=== PATIENT | female | born 1950 | race Caucasian/White ===

== ENCOUNTER 2018-10-26 20:08 | Emergency (ER) | payer OTHER, MEDICARE ==
[2018-10-26 21:04] LABS: BASOPHILS % (AUTO) 0.8 % (0.0-5.0); EOSINOPHILS % (AUTO) 1.1 % (0.0-8.0); HEMATOCRIT 36.9 % (36-48); LYMPHOCYTES % (AUTO) 20.3 % (21.0-51.0); MEAN CORPUSCULAR HEMOGLOBIN 28.8 pg (27.0-33.0); MEAN CORPUSCULAR HGB CONC 33.1 g/dL (32.0-36.0); MEAN CORPUSCULAR VOLUME 87.1 fL (79-99); MONOCYTES % (AUTO) 10.1 % (3.0-13.0); NEUTROPHILS % (AUTO) 67.7 % (40.0-77.0); PLATELET COUNT (AUTO) 194 K/uL (130-400); RED BLOOD CELL COUNT(AUTO) 4.24 MIL/uL (4.00-5.50); RED CELL DISTRIBUTION WIDTH 18.3 % (11.0-15.5); WHITE BLOOD COUNT (AUTO) 4.4 K/uL (4.8-10.8)
[2018-10-26 21:05] LABS: APPEARANCE,URINE Clear (CLEAR); BILIRUBIN,URINE Negative (NEGATIVE); COLOR,URINE Yellow (YELLOW); GLUCOSE, URINE (UA) >=1000 mg/dL (NEGATIVE); KETONES,URINE Negative (NEGATIVE); LEUKOCYTE ESTERASE ,URINE Trace (NEGATIVE); NITRATE,URINE Negative (NEGATIVE); OCCULT BLOOD,URINE Negative (NEGATIVE); PH,URINE 5.5 (5.0-8.0); PROTEIN,URINE Negative (NEGATIVE); UROBILINOGEN,URINE 0.2 mg/dL (0.2-1.0)
[2018-10-26 21:20] LABS: INR 0.95 (0.85-1.15); PARTIAL THROMBOPLASTIN TIME 29.7 SEC (26.3-35.5)
[2018-10-26 21:27] LABS: ALBUMIN 3.2 g/dL (3.5-5.0); BILIRUBIN,TOTAL 0.3 mg/dL (0.2-1.0); TOTAL PROTEIN, SERUM 6.6 g/dL (6.0-8.3)
[2018-10-26 21:35] LABS: RBC,URINE None Seen /HPF (0-1); WBC,URINE 0-1 /HPF (0-1)
[2018-10-26 21:36] LABS: BACTERIA,URINE None Seen /HPF (None Seen); YEAST,URINE BUDDING Few /HPF (None Seen)
== END 2018-10-27 00:48 | disposition home or self-care (01) ==
LOC: EDH 20:08
DX: K62.5 Hemorrhage of anus and rectum (principal); E11.9 Type 2 diabetes mellitus without complications; F41.9 Anxiety disorder, unspecified; I10 Essential (primary) hypertension
CPT/HCPCS: 36415; 80053; 81001; 82270; 82550; 84484; 85025; 85610; 85730; 86850; 86900; 86901; 93005

== ENCOUNTER 2023-11-20 20:05 | Inpatient (IN) | payer OTHER, MEDICARE ==
[~2023-11-20] VITALS: Ht 152.4 cm; Wt 76.7 kg
[~2023-11-20 20:05] MED LIST: AMLO2.5T4 PO; EMPA25TA PO; ESCI20TA38 PO; FENO145T26 PO; FINE10TA PO; FURO40TA5 PO; LISI40TA9 PO; MIRA50TA PO; PIOG15TA66 PO; ROSU40TA70 PO; TORS10TA18 PO; TRAZ-185 PO
[2023-11-20 21:14] LABS: BASOPHILS # (AUTO) 0.03 K/uL (0.00-0.20); BASOPHILS % (AUTO) 0.6 % (0.0-5.0); EOSINOPHILS # (AUTO) 0.05 K/uL (0.00-0.70); HEMATOCRIT 34.3 % (36-48); IMMATURE GRANULOCYTE ABSOLUTE 0.03 K/uL (0-1); LYMPHOCYTES # (AUTO) 0.5 K/uL (1.0-4.8); LYMPHOCYTES % (AUTO) 10.6 % (21.0-51.0); MEAN CORPUSCULAR HEMOGLOBIN 29.7 pg (27.0-33.0); MEAN CORPUSCULAR HGB CONC 31.5 g/dL (32.0-36.0); MEAN CORPUSCULAR VOLUME 94.2 fL (79-99); MONOCYTES # (AUTO) 0.6 K/uL (0.1-1.0); MONOCYTES % (AUTO) 11.6 % (3.0-13.0); NEUTROPHILS # (AUTO) 3.9 K/uL (1.8-7.7); NEUTROPHILS % (AUTO) 75.6 % (40.0-77.0); PLATELET COUNT (AUTO) 356 K/uL (130-400); RED BLOOD CELL COUNT(AUTO) 3.64 MIL/uL (4.00-5.50); RED CELL DISTRIBUTION WIDTH 14.2 % (11.0-15.5); WHITE BLOOD COUNT (AUTO) 5.1 K/uL (4.8-10.8)
[2023-11-20 21:24] LABS: INR <= 0.93 (0.85-1.15); PROTHROMBIN TIME 10.9 SEC (9.6-11.6)
[2023-11-20 21:26] LABS: PARTIAL THROMBOPLASTIN TIME 29.5 SEC (26.3-35.5)
[2023-11-20 21:28] LABS: BILIRUBIN,TOTAL 0.3 mg/dL (0.2-1.0); CREATININE 1.5 mg/dL (0.5-1.0); POTASSIUM 5.3 mmol/L (3.5-5.1); TOTAL PROTEIN, SERUM 8.4 g/dL (6.0-8.3)
[2023-11-20 22:30] LABS: APPEARANCE,URINE CLOUDY (CLEAR); BILIRUBIN,URINE NEGATIVE (NEGATIVE); COLOR,URINE LIGHT-YELLOW (YELLOW); GLUCOSE, URINE (UA) >=1000 mg/dL (NEGATIVE); KETONES,URINE NEGATIVE (NEGATIVE); LEUKOCYTE ESTERASE ,URINE 500 Leu/uL (NEGATIVE); NITRATE,URINE NEGATIVE (NEGATIVE); OCCULT BLOOD,URINE NEGATIVE (NEGATIVE); PROTEIN,URINE NEGATIVE (NEGATIVE); UROBILINOGEN,URINE 0.2 mg/dL (0.2-1.0)
[2023-11-20 22:31] LABS: ADD UA MICROSCOPIC YES
[2023-11-20 22:38] LABS: BACTERIA,URINE RARE /HPF (None Seen); MUCUS,URINE RARE LPF (None Seen); SQUAMOUS EPITHELIAL CELL,UR FEW /HPF (0-2); WBC,URINE 51-100 /HPF (0-1)
[2023-11-20] MEDS ORDERED: 0.9%NACL 1000ML 1,000 ML IV ONE (23:00)
[2023-11-20] MEDS: CEFTRIAXONE 1G VIAL IVPB ONE (23:59)
[2023-11-21] VITALS (8 sets, daily range): BP systolic 110–139; BP diastolic 58–79; PULSE 72–97; RESP 16–20; O2SAT 96–99
[2023-11-21] MEDS ORDERED: ONDANSETRON 4MG INJ IVP PRN (01:30)
[2023-11-21] MEDS ORDERED: PIOG15TA66 PO (03:33)
[2023-11-21] MEDS ORDERED: FERS325 PO (03:35)
[2023-11-21] MEDS ORDERED: HYDR25TA67 PO (03:37)
[2023-11-21 04:47] LABS: BASOPHILS # (AUTO) 0.02 K/uL (0.00-0.20); BASOPHILS % (AUTO) 0.5 % (0.0-5.0); EOSINOPHILS # (AUTO) 0.06 K/uL (0.00-0.70); EOSINOPHILS % (AUTO) 1.4 % (0.0-8.0); IMMATURE GRANULOCYTE ABSOLUTE 0.02 K/uL (0-1); LYMPHOCYTES # (AUTO) 0.5 K/uL (1.0-4.8); MEAN CORPUSCULAR HEMOGLOBIN 29.3 pg (27.0-33.0); MEAN CORPUSCULAR HGB CONC 32.2 g/dL (32.0-36.0); MEAN CORPUSCULAR VOLUME 91.2 fL (79-99); MONOCYTES # (AUTO) 0.5 K/uL (0.1-1.0); MONOCYTES % (AUTO) 10.9 % (3.0-13.0); NEUTROPHILS # (AUTO) 3.3 K/uL (1.8-7.7); NEUTROPHILS % (AUTO) 74.7 % (40.0-77.0); NUCLEATED RED BLOOD CELLS 0.5 % (0.0-0.19); PLATELET COUNT (AUTO) 357 K/uL (130-400); RED BLOOD CELL COUNT(AUTO) 3.51 MIL/uL (4.00-5.50); RED CELL DISTRIBUTION WIDTH 14.1 % (11.0-15.5); WHITE BLOOD COUNT (AUTO) 4.4 K/uL (4.8-10.8)
[2023-11-21 05:01] LABS: CREATININE 1.4 mg/dL (0.5-1.0); MAGNESIUM 2.1 mg/dL (1.80-2.40)
[2023-11-21] MEDS: INSULIN HUMULIN R 100 UNIT/ML 3ML SQ SCH (06:07)
[2023-11-21] MEDS: ACETAMINOPHEN 325 MG TAB PO PRN (09:51)
[2023-11-21] MEDS: 0.9%NACL 1000ML 1,000 ML IV SCH (12:56)
[2023-11-21] MEDS: LOPERAMIDE HCL 2 MG CAP PO ONE (12:56)
[2023-11-21] MEDS: HYDRALAZINE 25MG TABLET PO SCH (21:39)
[2023-11-21] MEDS: ATORVASTATIN 40 MG TABLET PO SCH (21:39)
[2023-11-21] MEDS: TRAZODONE HCL 50 MG TAB PO PRN (21:39)
[2023-11-22] VITALS (7 sets, daily range): BP systolic 100–125; BP diastolic 54–69; PULSE 72–87; RESP 16–19; O2SAT 94
[2023-11-22] MEDS: CEFTRIAXONE 1G VIAL IVPB SCH (01:00)
[2023-11-22 03:40] LABS: BASOPHILS # (AUTO) 0.01 K/uL (0.00-0.20); BASOPHILS % (AUTO) 0.3 % (0.0-5.0); EOSINOPHILS # (AUTO) 0.08 K/uL (0.00-0.70); EOSINOPHILS % (AUTO) 2.7 % (0.0-8.0); HEMATOCRIT 30.1 % (36-48); IMMATURE GRANULOCYTE ABSOLUTE 0.04 K/uL (0-1); LYMPHOCYTES # (AUTO) 0.5 K/uL (1.0-4.8); LYMPHOCYTES % (AUTO) 15.4 % (21.0-51.0); MEAN CORPUSCULAR HEMOGLOBIN 30.3 pg (27.0-33.0); MEAN CORPUSCULAR HGB CONC 32.2 g/dL (32.0-36.0); MEAN CORPUSCULAR VOLUME 94.1 fL (79-99); MONOCYTES # (AUTO) 0.4 K/uL (0.1-1.0); MONOCYTES % (AUTO) 13.8 % (3.0-13.0); NEUTROPHILS % (AUTO) 66.5 % (40.0-77.0); NUCLEATED RED BLOOD CELLS 1.3 % (0.0-0.19); PLATELET COUNT (AUTO) 298 K/uL (130-400)
[2023-11-22 03:51] LABS: ALBUMIN 3.2 g/dL (3.5-5.0); BILIRUBIN,TOTAL 0.2 mg/dL (0.2-1.0); CREATININE 1.5 mg/dL (0.5-1.0); MAGNESIUM 2.1 mg/dL (1.80-2.40); POTASSIUM 4.9 mmol/L (3.5-5.1); TOTAL PROTEIN, SERUM 6.8 g/dL (6.0-8.3)
[2023-11-22 05:33] LABS: LYMPHOCYTES % (MANUAL) 21 % (22-44); MONOCYTES % (MANUAL) 13 % (2-9); REACTIVE LYMPHOCYTES 1 % (0-0); SEGMENTED NEUTROPHILS % 65 % (40-70); TOTAL CELLS COUNTED 100
[2023-11-22 05:34] LABS: MAN.DIFF COMMENT-IMPRESSION MANUAL DIFFERENTIAL; PLATELET MORPHOLOGY COMMENT ADEQUATE; WBC MORPHOLOGY NORMAL
[2023-11-22] MEDS ORDERED: NON-FORMULARY MEDICATION 1 EACH (Rosuvastatin Calcium 40 MG) PO SCH (09:00)
[2023-11-22] MEDS ORDERED: TORSEMIDE 20 MG TAB PO SCH (09:00)
[2023-11-22] MEDS: KERENDIA 10 MG PO SCH (09:00)
[2023-11-22] MEDS ORDERED: NON-FORMULARY MEDICATION 1 EACH (Escitalopram Oxalate 20 MG) PO SCH (09:00)
[2023-11-22] MEDS ORDERED: PIOGLITAZONE 15MG TAB PO SCH (09:00)
[2023-11-22] MEDS ORDERED: NON-FORMULARY MEDICATION 1 EACH (Ferrous Sulfate 325 MG) PO SCH (09:00)
[2023-11-22] MEDS ORDERED: FUROSEMIDE 40 MG TABLET PO SCH (09:00)
[2023-11-22] MEDS ORDERED: NON-FORMULARY MEDICATION 1 EACH (Torsemide 10 MG) PO SCH (09:00)
[2023-11-22] MEDS ORDERED: FINERENONE 10 MG PO SCH (09:00)
[2023-11-22] MEDS: FERROUS SULFATE 325 MG TABLET.DR PO SCH (09:12)
[2023-11-22] MEDS: LOPERAMIDE HCL 2 MG CAP PO PRN (09:13)
[2023-11-22] MEDS: CITALOPRAM 20 MG TABLET PO SCH (09:13)
[2023-11-22] MEDS: FENOFIBRATE NANOCRYSTALLIZED 145 MG TAB PO SCH (09:13)
[2023-11-22] MEDS: PIOGLITAZONE 15MG TAB PO SCH (09:13)
[2023-11-22] MEDS: EMPAGLIFLOZIN 25MG TABLET PO SCH (09:14)
[2023-11-22] MEDS: LISINOPRIL 40 MG TABLET PO SCH (09:18)
[2023-11-22] MEDS: AMLODIPINE 2.5 MG TAB PO SCH (09:19)
[2023-11-22] MEDS: ZOSYN 3.375GM +NS 50ML IV SCH (09:53)
[2023-11-23] VITALS (7 sets, daily range): BP systolic 103–136; BP diastolic 57–74; PULSE 76–89; RESP 16–18; O2SAT 98
[2023-11-23 03:59] LABS: HEMATOCRIT 27.5 % (36-48); MEAN CORPUSCULAR HGB CONC 31.3 g/dL (32.0-36.0); MEAN CORPUSCULAR VOLUME 95.8 fL (79-99); NUCLEATED RED BLOOD CELLS 0.9 % (0.0-0.19); RED BLOOD CELL COUNT(AUTO) 2.87 MIL/uL (4.00-5.50); RED CELL DISTRIBUTION WIDTH 14.3 % (11.0-15.5); WHITE BLOOD COUNT (AUTO) 3.3 K/uL (4.8-10.8)
[2023-11-23 04:21] LABS: CREATININE 1.5 mg/dL (0.5-1.0); MAGNESIUM 2.1 mg/dL (1.80-2.40); POTASSIUM 4.8 mmol/L (3.5-5.1)
[2023-11-24] VITALS: BP 115/61; PULSE 78; RESP 18
[2023-11-24 04:00] VITALS: BP 113/52; PULSE 73; RESP 18
[2023-11-24 04:08] LABS: INR 1.31 (0.85-1.15); PROTHROMBIN TIME 15.2 SEC (9.6-11.6)
[2023-11-24 04:10] LABS: PARTIAL THROMBOPLASTIN TIME 45.1 SEC (26.3-35.5)
[2023-11-24 07:19] LABS: C DIFFICILE TOXIN A/B Not Detected (Not Detected); ENTEROAGGREGATIVE ECOLI Not Detected (Not Detected); GIARDIA LAMBLIA Not Detected (Not Detected); PLESIOMONAS SHIGELOIDES Not Detected (Not Detected); SAPOVIRUS Detected (Not Detected); SHIGELLA/ENTEROINVASIVE E COLI Not Detected (Not Detected); VIBRIO Not Detected (Not Detected); VIBRIO CHOLERAE Not Detected (Not Detected)
[2023-11-24 07:44] VITALS: BP 125/63; PULSE 82; RESP 17
[2023-11-24 08:45] VITALS: O2SAT 95
[2023-11-24 12:29] VITALS: BP 141/65; PULSE 77; RESP 18
[2023-11-24 12:32] VITALS: BP 151/75; PULSE 85; RESP 18
== END 2023-11-24 16:00 | disposition home or self-care (01) | DRG 683 ==
LOC: EDH 20:05 → EDHIP 23:37 → 4AH 11-21 01:52
PROVIDERS: ADMIT Internal Medicine Infectious Disease; ATTEND Internal Medicine Infectious Disease
DX: N17.9 Acute kidney failure, unspecified (principal); E87.1 Hypo-osmolality and hyponatremia; N39.0 Urinary tract infection, site not specified; Z16.24 Resistance to multiple antibiotics; E86.0 Dehydration; K52.9 Noninfective gastroenteritis and colitis, unspecified; E11.9 Type 2 diabetes mellitus without complications; E78.00 Pure hypercholesterolemia, unspecified; I10 Essential (primary) hypertension; E83.52 Hypercalcemia; E87.5 Hyperkalemia; B96.20 Unspecified Escherichia coli [E. coli] as the cause of diseases classified elsewhere; E66.01 Morbid (severe) obesity due to excess calories; F32.A Depression, unspecified; I25.10 Atherosclerotic heart disease of native coronary artery without angina pectoris; Z95.5 Presence of coronary angioplasty implant and graft; Z79.899 Other long term (current) drug therapy; Z68.33 Body mass index [BMI] 33.0-33.9, adult
CPT/HCPCS: 36415; 36569; 71045; 76770; 80048; 80053; 81001; 82948; 83690; 83735; 85025; 85027; 85610; 85730; 87077; 87088; 87186; 87507; C1894; G0378; J0696; J1815; J2543

== ENCOUNTER 2024-05-10 14:00 | Emergency (ER) | payer MEDICARE ==
[~2024-05-10] VITALS: Ht 152.4 cm; Wt 81.6 kg
[~2024-05-10 14:00] MED LIST changes: +FERS325 PO; +HYDR25TA67 PO; -ROSU40TA70 PO; +ROSU40TA88 PO
--- NOTE | 2024-05-10 15:17 | HMCIMG ---
CT HEAD WITHOUT CONTRAST INDICATION: Fall TECHNIQUE: Noncontrast axial helical CT images from the vertex through the skull base using 5 mm slice thickness without contrast material. Coronal and sagittal reconstructions were also included. Dose reduction techniques was used using integrated, automated and adaptive dose reduction exposure control. CT was performed with one or more of the following dose reduction techniques: Automated exposure control, adjustment of the mA and/or kV according to patient size, or use of iterative reconstruction technique. COMPARISON: None FINDINGS: Scattered and coalescent subcortical and periventricular white matter low attenuating areas likely represent residual of chronic small vessel arteriopathy and/or remote vascular insult. Generalized mild cerebral cortical atrophy is present.. No evidence for abnormal extra-axial fluid collections or masses. The ventricles and sulci are normal in size and configuration. No evidence for intracranial parenchymal, epidural, or subdural hemorrhage, mass effect or midline shift. The ames-white matter differentiation is well preserved. No secondary evidence to suggest acute ischemia. Mild calcific plaque is present along the contreras of the cavernous segments of both internal carotid arteries. The brainstem and cerebellum appear normal. The visualized orbits appear unremarkable. The visible paranasal sinuses and mastoid air cells are clear. The calvarium appears normal. IMPRESSION: Chronic white matter ischemic changes, mild brain atrophy, and arteriosclerotic disease as described, without acute component.
[2024-05-10] MEDS: acetaMINOPHEN 500 MG TABLET PO ONE (15:26)
[2024-05-10 15:37] VITALS: O2SAT 96
--- NOTE | 2024-05-10 15:47 | ERN ---
General Chief Complaint: Mechanical Fall Stated Complaint: FALL Time Seen by MD: 14:09 Source: patient History of Present Illness Initial Comments PATIENT IS A 73-YEAR-OLD FEMALE COMING IN TO BE EVALUATED FOR SLIP AND FALL. PATIENT STATES SHE WAS FEEDING HER ANIMALS AT HOME SLIPPED AND LANDED ON THE BACK OF HER HEAD. NO LOSS OF CONSCIOUSNESS SHE IS NOT ON BLOOD THINNERS SHE IS HERE FOR EVALUATION. Allergies: Coded Allergies: No Known Allergies (Verified Allergy, Unknown, 11/19/18) Home Meds Reported Medications Hydralazine HCl (Hydralazine HCl) 25 Mg Tablet, 25 MG PO TID, TAB 11/21/23 Ferrous Sulfate (Ferrous Sulfate) 325 Mg (65 Mg Iron) Ectab, 325 MG PO AM, TAB.EC 11/21/23 Pioglitazone HCl (Pioglitazone HCl) 15 Mg Tablet, 15 MG PO AM, TAB 11/21/23 Finerenone (Kerendia) 10 Mg Tablet, 10 MG PO DAILY, TAB 11/21/23 Mirabegron (Myrbetriq) 50 Mg Tab.er.24h, 50 MG PO DAILY, TAB 09/14/23 Fenofibrate Nanocrystallized (Fenofibrate) 145 Mg Tablet, 145 MG PO DAILY, TAB 09/14/23 Trazodone HCl (Trazodone HCl) 50 Mg Tablet, 50 MG PO HS PRN for SLEEP, TAB 09/14/23 Torsemide (Torsemide) 10 Mg Tablet, 10 MG PO DAILY, TAB 09/14/23 Escitalopram Oxalate (Escitalopram Oxalate) 20 Mg Tablet, 20 MG PO DAILY, TAB 09/14/23 Amlodipine Besylate (Amlodipine Besylate) 2.5 Mg Tablet, 2.5 MG PO DAILY, TAB 09/14/23 Finerenone (Kerendia) 10 Mg Tablet, 10 MG PO DAILY, TAB 09/14/23 Pioglitazone HCl (Pioglitazone HCl) 15 Mg Tablet, 15 MG PO DAILY, TAB 09/14/23 Rosuvastatin Calcium (Rosuvastatin Calcium) 40 Mg Tablet, 40 MG PO DAILY, TAB 09/14/23 Furosemide (Furosemide) 40 Mg Tablet, 40 MG PO DAILY, TAB 09/14/23 Empagliflozin (Jardiance) 25 Mg Tablet, 25 MG PO DAILY, TAB 09/14/23 Lisinopril (Lisinopril) 40 Mg Tablet, 40 MG PO DAILY, TAB 09/14/23 Past Medical History Past Medical History: Diabetes-Type II, High Cholesterol, Hypertension Past Surgical History: None Surgical History Other: CARDIAC STENT Social History Social History: Negative, Lives with family ROS Dictation CONSTITUTIONAL: NO CHILLS, NO FEVER, NO WEAKNESS, NO DIAPHORESIS, NO MALAISE. HEAD/FACE: NO SIGNS OF TRAUMA. EENT: NO EYE PAIN, NO BLURRED VISION, NO TEARING, NO DOUBLE VISION, NO EAR PAIN, NO EAR DISCHARGE, NO NOSE PAIN, NO NASAL CONGESTION, NO THROAT PAIN, NO THROAT SWELLING, NO MOUTH PAIN. RESPIRATORY: NO COUGH, NO ORTHOPNEA, NO SOB, NO STRIDOR, NO WHEEZING. CARDIOVASCULAR: NO CHEST PAIN, NO EDEMA, NO PALPITATIONS, NO SYNCOPE. GASTROINTESTINAL/ABDOMINAL: NO ABDOMINAL PAIN, NO CONSTIPATION, NO DIARRHEA, NO NAUSEA, NO VOMITING. GENITOURINARY: NO ABNORMAL DISCHARGE, NO DYSURIA, NO FREQUENT URINATION, NO HEMATURIA. NO COMPLAINTS OF PAIN IN THE GENITALS. MUSCULOSKELETAL: NO BACK PAIN, NO GOUT, NO JOINT PAIN, NO JOINT SWELLING, NO MUSCLE PAIN, NO MUSCLE STIFFNESS, NO NECK PAIN. INTEGUMENTARY: NO CHANGE IN COLOR, NO CHANGE IN HAIR/NAILS, NO DRYNESS, NO LESION, NO LUMPS, NO RASH. NEUROLOGICAL/PSYCH: NO ANXIETY, NOT DEPRESSED, NO EMOTIONAL PROBLEM, NO H EADACHE, NO NUMBNESS, NO PRE-EXISTING DEFICIT, NO HISTORY OF SEIZURES, NO TREMORS, NO WEAKNESS. HEMATOLOGIC/LYMPHATIC: NOT ANEMIC, NO HISTORY OF BLOOD CLOTS, NO APPARENT BLEEDING, NO BRUISING, GLANDS NOT SWOLLEN. ALL SYSTEMS NEGATIVE, EXCEPT NOTED. Physical Exam Physical Exam Dictation VITAL SIGNS: REVIEWED. GENERAL APPEARANCE: ALERT, ORIENTED X3, NO ACUTE DISTRESS, OBESE. HEAD AND FACE: NON-TRAUMATIC. EYES: PERRL, PINK CONJUNCTIVAS, EYELID NO TRAUMA, ANTERIOR CHAMBER CLEAR. EARS: PINNAS INTACT AND NO SIGNS OF TRAUMA OR ERYTHEMA. EAR CANALS CLEAR AND NO DISCHARGE. TMS NO ERYTHEMA. NOSE: NO DISCHARGE, NO BLEEDING. OROPHARYNX: MOUTH NORMAL, TEETH NO CARIES, TONGUE PINK. PHARYNX CLEAR, NO ERYTHEMA. TONSILS NO EXUDATES, NO ABSCESSES NOTED. MUCOUS MEMBRANE MOIST. NECK: SUPPLE, NON-TENDER, NO THYROMEGALY, NO MASSES, NO JVD, NO BRUITS. BREAST: DEFERRED. CHEST: NO TENDERNESS, NO CREPITUS, NO PARADOXICAL MOVEMENT, NO RETRACTIONS. LUNGS: CLEAR, WELL-VENTILATED, SYMMETRIC, NO RALES, NO WHEEZING, NO RHONCHI, NO STRIDOR, GOOD BREATH SOUNDS BILATERALLY. HEART: REGULAR RATE, REGULAR RHYTHM, NO MURMUR, NO GALLOPS. VASCULAR: NO PERIPHERAL EDEMA. ABDOMEN: SOFT, POSITIVE BOWEL SOUNDS, NONDISTENDED, NO GUARDING, NONTENDER, NO REBOUND, NO MASSES NO HEPATOMEGALY, NO SPLENOMEGALY, NO GONZALES'S SIGN, NO HERNIAS. RECTAL: DEFERRED. GENITAL: DEFERRED. NEUROLOGICAL: NORMAL SPEECH, GROSS MOTOR FUNCTION INTACT, GROSS SENSORY FUNCTION INTACT. MUSCULOSKELETAL: NECK NONTENDER, FULL RANGE OF MOTION, BACK NONTENDER, FULL RANGE OF MOTION. EXTREMITIES: NONTENDER, FULL RANGE OF MOTION. SKIN: COLOR PINK, DRY, NO TURGOR, NO RASH, NO LACERATIONS, NO ABRASIONS, NO CONTUSIONS. LYMPHATICS: DEFERRED. Results Laboratory and Microbiology Labs Reviewed?: Yes EKG/XRAY/US/CT/MRI X-RAY Comment X-ray left knee-NAD pending radiology reading X-ray cervical spine-NAD [place] [address] IMAGING REPORT Signed PATIENT: KAYE CABAN MR#: [id number] : 1950 SEX: F AGE: 73 LOCATION: [facility] ORDER 20 STATUS: [facility] REPORT#: [id number] SERVICE 19 REASON: FALL ORDERING PHYSICIAN: DESTINY ZURITA MD PROCEDURE: HEAD WO - CT HEAD/BRAIN W/O CONTRAST CT HEAD WITHOUT CONTRAST INDICATION: Fall TECHNIQUE: Noncontrast axial helical CT images from the vertex through the skull base using 5 mm slice thickness without contrast material. Coronal and sagittal reconstructions were also included. Dose reduction techniques was used using integrated, automated and adaptive dose reduction exposure control. CT was performed with one or more of the following dose reduction techniques: Automated exposure control, adjustment of the mA and/or kV according to patient size, or use of iterative reconstruction technique. COMPARISON: None FINDINGS: Scattered and coalescent subcortical and periventricular white matter low attenuating areas likely represent residual of chronic small vessel arteriopathy and/or remote vascular insult. Generalized mild cerebral cortical atrophy is present.. No evidence for abnormal extra-axial fluid collections or masses. The ventricles and sulci are normal in size and configuration. No evidence for intracranial parenchymal, epidural, or subdural hemorrhage, mass effect or midline shift. The ames-white matter differentiation is well preserved. No secondary evidence to suggest acute ischemia. Mild calcific plaque is present along the contreras of the cavernous segments of both internal carotid arteries. The brainstem and cerebellum appear normal. The visualized orbits appear unremarkable. The visible paranasal sinuses and mastoid air cells are clear. The calvarium appears normal. IMPRESSION: Chronic white matter ischemic changes, mild brain atrophy, and arteriosclerotic disease as described, without acute component. DICTATED BY: MERRILL SARAVIA MD DATE: 05/10/241513 ELECTRONICALLY SIGNED BY: MERRILL SARAVIA MD DATE: 05/10/241516 [facility] MDM: Differential diagnosis: Mechanical fall, knee strain, I would contusion Patient is a 73-year-old female coming in to be evaluated after she had a fall earlier today. She will patient she slipped and fell back hitting her head. No loss of consciousness he was escorted. On physical exam mild abrasion in the occipital region of the scalp. Patient will be discharged in stable condition with a diagnosis of mechanical fall. Left knee strain was also present knee immobilizer in place. Patient will be discharged in stable condition I advised her appropriate follow up with PCP in 1-2 days. ED Course Orders Procedure Category Date Status Time Ct Head/Brain W/O CT 05/10/24 Resulted Contrast 14:20 Cerv Spine 2-3vws RAD 05/10/24 Taken 14:20 Knee 3vws Lt RAD 05/10/24 Taken 14:20 Diph,Pertuss(Acell),Tet PHA 05/10/24 Complete Vac/Pf (Tdap) 14:30 Acetaminophen 500mg PHA 05/10/24 Complete Tab (Tylenol 500mg T 14:30 Knee Immobilizer OBED 05/10/24 In Process 15:47 Current Medications Medications (Trade) Dose Ordered Sig/Christie Route PRN Reason Start Time Stop Time Status Last Admin Dose Admin Acetaminophen (TYLenol 500MG TAB) 1,000 mg ONCE ONCE PO 05/10/24 14:30 11/16/24 14:31 DC 05/10/24 15:26 Diphtheria/ Tetanus/Acell Pertussis (Tdap) 0.5 ml ONCE ONCE IM 05/10/24 14:30 05/10/24 14:31 DC 05/10/24 16:19 Vital Signs Date Time Temp Pulse Resp B/P (MAP) Pulse Ox O2 Delivery O2 Flow Rate FiO2 05/10/24 15:37 82 17 121/55 96 Room Air* 0 21 05/10/24 14:13 98.8 82 20 158/80 97 Room Air 0 DX & DISP Disposition: Discharge Departure Impression: Primary Impression: Accidental mechanical suffocation by falling material Additional Impression: Knee strain Condition: Stable Scripts Naproxen (Naproxen) 250 Mg Tablet 1 TAB PO BID for pain for 15 Days, #30 TAB 0 Refills Prov: DESTINY ZURITA MD 05/10/24 Additional Instructions: FOLLOW-UP WITH PRIMARY CARE PROVIDER IN 1 TO 2 DAYS. TAKE MEDICATIONS DIRECTED HERE IN THE EMERGENCY ROOM. OKAY TO CONTINUE HOME MEDICATIONS UNLESS OTHERWISE DISCUSSED DURING YOUR VISIT IN THE EMERGENCY ROOM TODAY. RETURN TO YOUR NEAREST EMERGENCY ROOM IF SYMPTOMS WORSEN OR IF THERE IS NO IMPROVEMENT. CALL 911 IF YOU NEED IMMEDIATE ASSISTANCE. TAKE TYLENOL INTO-MKU-AADOMSQ NEEDED AND IF NO CONTRAINDICATIONS ARE PRESENT. INCREASE ORAL HYDRATION. A WOUND CULTURE OR URINE CULTURE WAS ORDERED HERE IN THE EMERGENCY ROOM DEPARTMENT PLEASE FOLLOW-UP WITH PRIMARY CARE PROVIDER AND ADVISE THEM TO GET REPEAT PORTS FROM OUR FACILITY. IF YOU HAD ANY MERCEDEZ WRAP/SPLINTS THAT WERE APPLIED HERE, PLEASE DO NOT REMOVE THEM UNTIL YOU SEE YOUR PRIMARY CARE OR SPECIALTY. Referrals: Referrals: NELIDA CORONADO DO (PCP) Time of Disposition: 16:38 DESTINY ZURITA MD May 10, 2024 15:47
[2024-05-10] MEDS: DIPH,PERTUSS(ACELL),TET VAC/PF 0.5 ML VIAL IM ONE (16:19)
[2024-05-10 16:39] VITALS: BP 145/70; PULSE 96; RESP 17; TEMP 98
[2024-05-10] MEDS ORDERED: NAPR-1196 PO (16:39)
--- NOTE | 2024-05-10 16:41 | NUR ---
discussed with daughter the importance of having someone help patient at home , patient and daughter verbally understood
--- NOTE | 2024-05-10 17:39 | HMCIMG ---
KNEE 3VWS LT CLINICAL HISTORY: FALL COMPARISON: None TECHNIQUE: 4 images were obtained. FINDINGS: There is an oblique intra-articular fracture of the lateral femoral condyle. There is one cortical width displacement of the fracture fragment. Additionally demonstrated is a large joint effusion and soft tissue edema. The remaining bony structures are intact. IMPRESSION: Intra-articular femur fracture
--- NOTE | 2024-05-10 18:01 | HMCIMG ---
CERV SPINE 2-3VWS: 05/10/2024 2:20 PM RN DIALYSIS CLINICAL HISTORY: FALL COMPARISON: None TECHNIQUE: 5 images of the cervical spine were obtained. FINDINGS: The lung apices are clear. There is no fracture or destructive lesion. The vertebral bodies and posterior elements are unremarkable. The alignment, discs, and discovertebral relationships are normal. There is no evidence of instability on these views. IMPRESSION: Normal cervical spine.
== END 2024-05-10 16:45 | disposition home or self-care (01) ==
LOC: EDH 14:00
DX: S86.912A Strain of unspecified muscle(s) and tendon(s) at lower leg level, left leg, initial encounter (principal); E11.9 Type 2 diabetes mellitus without complications; E78.00 Pure hypercholesterolemia, unspecified; I10 Essential (primary) hypertension; R51.9 Headache, unspecified; Z79.84 Long term (current) use of oral hypoglycemic drugs; Z79.899 Other long term (current) drug therapy; Z95.5 Presence of coronary angioplasty implant and graft; W01.0XXA Fall on same level from slipping, tripping and stumbling without subsequent striking against object, initial encounter; Y93.89 Activity, other specified; Y92.89 Other specified places as the place of occurrence of the external cause; Y99.8 Other external cause status
CPT/HCPCS: 29505; 70450; 72040; 73562; 90471; 90715; 99285

== ENCOUNTER 2025-01-11 20:05 | Emergency (ER) | payer OTHER, MEDICAID ==
[~2025-01-11] VITALS: Ht 152.4 cm; Wt 79.8 kg
[~2025-01-11 20:05] MED LIST changes: +CLON0.5T4 PO; +LISI40TA15 PO; -LISI40TA9 PO; +NAPR-1196 PO
--- NOTE | 2025-01-11 20:30 | EKG ---
[facility] Test Date: 2025-01-11 Test Time: 20:26:22 Pat Name: KAYE CABAN Department: ED Room: Gender: F [employer] Operator: [id number] : 1950 Requested By: LEONIDAS DOMINGUEZ Order Number: [id number] Reading MD: Santos Mccallum Measurements Intervals [place] Rate: 69 P: 34 NC: 176 QRS: -51 QRSD: 109 T: 29 QT: 403 QTc: 431 Interpretive Statements Sinus rhythm Left anterior fascicular block Low voltage, precordial leads Probable anteroseptal infarct, old Electronically Signed On 01-13-2025 00:00:29 CDT by Santos Mccallum Please click the below link to view image of tracing.
[2025-01-11 20:33] LABS: IMMATURE GRANULOCYTE ABSOLUTE 0.02 K/uL (0-1); NUCLEATED RED BLOOD CELLS 0.0 % (0.0-0.19); PLATELET COUNT (AUTO) 237 K/uL (130-400); RED BLOOD CELL COUNT(AUTO) 3.95 MIL/uL (4.00-5.50); RED CELL DISTRIBUTION WIDTH 14.0 % (11.0-15.5); WHITE BLOOD COUNT (AUTO) 5.1 K/uL (4.8-10.8)
[2025-01-11 20:49] LABS: CREATININE 1.5 mg/dL (0.5-1.0); GLOMERULAR FILTR. RATE CALC 37.0 mL/min (>90); GLUCOSE,RANDOM 147.0 mg/dL (70-105); SODIUM SERUM 136.0 mmol/L (136-145); UREA NITROGEN, BLOOD 42.0 mg/dL (7-18)
--- NOTE | 2025-01-11 20:56 | ERN ---
ED Note History of Present Illness Stated Complaint: GBW, DIZZINESS, FATIGUE Chief Complaint: Weakness Time Seen by MD: 20:10 Dictation: This is a 74-year-old female who apparently was at other son's home when she complained of dizziness and fatigue they checked her blood pressure and basically called EMS for evaluation. Son was at bedside who indicated that he usually takes care of her and she has had low sugar early this morning after which she indulged in syrup to bring her sugars up in the follow up sugars were in the 400s. Eventually the sugars stabilized. No falls no nausea vomitings diarrhea. She has had multiple episodes of ER visits with fatigue and generalized body weakness. Temperature 98.6 pulse 81 respirations 16 blood pressure 105/60 with a pulse oximetry of 97% on room air Chronic medical problems include diabetes mellitus, hypertension, hypercholesterolemia, coronary artery disease, renal failure during recent admission and discharge on 12/11/2024 Allergies: Coded Allergies: No Known Allergies (Verified Allergy, Unknown, 11/19/18) Home Meds Active Scripts Naproxen (Naproxen) 250 Mg Tablet, 1 TAB PO BID for pain for 15 Days, #30 TAB 0 Refills Prov:DESTINY ZURITA MD 05/10/24 Reported Medications Clonazepam (Clonazepam) 0.5 Mg Tablet, 1 TAB PO [id number] PRN for anxiety for 30 Days, #60 TAB 0 Refills 12/06/24 Hydralazine HCl (Hydralazine HCl) 25 Mg Tablet, 25 MG PO TID, TAB 11/21/23 Ferrous Sulfate (Ferrous Sulfate) 325 Mg (65 Mg Iron) Ectab, 325 MG PO AM, TAB.EC 11/21/23 Pioglitazone HCl (Pioglitazone HCl) 15 Mg Tablet, 15 MG PO AM, TAB 11/21/23 Finerenone (Kerendia) 10 Mg Tablet, 10 MG PO DAILY, TAB 11/21/23 Mirabegron (Myrbetriq) 50 Mg Tab.er.24h, 50 MG PO DAILY, TAB 09/14/23 Fenofibrate Nanocrystallized (Fenofibrate) 145 Mg Tablet, 145 MG PO DAILY, TAB 09/14/23 Trazodone HCl (Trazodone HCl) 50 Mg Tablet, 50 MG PO HS PRN for SLEEP, TAB 09/14/23 Torsemide (Torsemide) 10 Mg Tablet, 10 MG PO DAILY, TAB 09/14/23 Escitalopram Oxalate (Escitalopram Oxalate) 20 Mg Tablet, 20 MG PO DAILY, TAB 09/14/23 Amlodipine Besylate (Amlodipine Besylate) 2.5 Mg Tablet, 2.5 MG PO DAILY, TAB 09/14/23 Finerenone (Kerendia) 10 Mg Tablet, 10 MG PO DAILY, TAB 09/14/23 Pioglitazone HCl (Pioglitazone HCl) 15 Mg Tablet, 15 MG PO DAILY, TAB 09/14/23 Rosuvastatin Calcium (Rosuvastatin Calcium) 40 Mg Tablet, 40 MG PO DAILY, TAB 09/14/23 Furosemide (Furosemide) 40 Mg Tablet, 40 MG PO DAILY, TAB 09/14/23 Empagliflozin (Jardiance) 25 Mg Tablet, 25 MG PO DAILY, TAB 09/14/23 Lisinopril (Lisinopril) 40 Mg Tablet, 40 MG PO DAILY, TAB 09/14/23 Past Medical History Past Medical History: Anxiety, Depression, Diabetes-Type II, High Cholesterol, Hypertension Additional Past Medical Hx: OBESITY Surgical History: Other Surgical History Other: CARDIAC STENT. L KNEE SURGERY Family History: Negative Social History: Negative, Lives with family History: Not Applicable RN Note Reviewed/Agreed w/PFSH: Yes Review of System Dictation Constitutional: Negative for fever,chills, and weight loss positive for generalized body weakness dizziness and fatigue Eyes: Negative for injury, pain,redness, and discharge ENT: Negative for injury,pain or swelling Cardiovascular: Negative for chest pain, palpitations, and edema Respiratory: Negative for shortness of breath, cough, and wheezing, Abdomen/GI: Negative for abdominal pain, nausea, vomiting, diarrhea, and constipation Back: Negative for injury and pain : Negative for injury, bleeding and discharge MS/Extremity: Negative for injury and deformity Skin: Negative for rash, and discoloration Neuro: Negative for headache, weakness, numbness, tingling, and seizure Psych: Negative for suicide ideation, homicidal ideation, and hallucinations Initial Vital Sign VS Vital Signs Date Time Temp Pulse Resp B/P (MAP) Pulse Ox O2 Delivery O2 Flow Rate FiO2 01/11/25 20:11 98.8 81 16 105/60 97 Room Air 0 01/11/25 20:15 21 Physical Exam Dictation General: awake, alert, NAD very short extremely obese visceral Head/Face: Normocephalic, atraumatic Eyes: PERRL, EOMI, vision at baseline ENT: oral cavity clear, TMs clear, no signs of infection Neck: Trachea midline, supple, no nuchal rigidity Cardiovascular: RRR, normal S1/S2, No MRGs, no JVD Respiratory: CTAB, no respiratory distress, No rales or wheezes Abdomen: Soft, non-tender, non-distended, normal bowel sounds, no guarding or rebound. Skin: Warm, dry, mildly reduced l turgor, no rash MS/Extremity: Pulses equal, no cyanosis, neurovascular intact, FROM Neuro: COAx4, GCS 15, strength 5/5, CN 2-12 intact, normal cerebellar exam, normal gait, Psych: Normal behavior, mood, and affect normal Extremities-trace edema without any palpable cords, Homans sign is negative Results (Laboratory/Radiology) Laboratory/Radiology Laboratory Tests Test 01/11/25 20:23 01/11/25 20:49 White Blood Count 5.1 K/uL (4.8-10.8) Red Blood Count 3.95 MIL/uL (4.00-5.50) L Hemoglobin 11.2 g/dL (12.0-16.0) L Hematocrit 35.1 % (36-48) L Mean Corpuscular Volume 88.9 fL (79-99) Mean Corpuscular Hemoglobin 28.4 pg (27.0-33.0) Mean Corpuscular Hemoglobin Concent 31.9 g/dL (32.0-36.0) L Red Cell Distribution Width 14.0 % (11.0-15.5) Platelet Count 237 K/uL (130-400) Mean Platelet Volume 10.6 fL (7.5-10.5) H Immature Granulocyte % (Auto) 0.4 % (0-1) Neutrophils (%) (Auto) 80.5 % (40.0-77.0) H Lymphocytes (%) (Auto) 8.4 % (21.0-51.0) L Monocytes (%) (Auto) 9.3 % (3.0-13.0) Eosinophils (%) (Auto) 1.2 % (0.0-8.0) Basophils (%) (Auto) 0.2 % (0.0-5.0) Neutrophils # (Auto) 4.1 K/uL (1.8-7.7) Lymphocytes # (Auto) 0.4 K/uL (1.0-4.8) L Monocytes # (Auto) 0.5 K/uL (0.1-1.0) Eosinophils # (Auto) 0.06 K/uL (0.00-0.70) Basophils # (Auto) 0.01 K/uL (0.00-0.20) Absolute Immature Granulocyte (auto 0.02 K/uL (0-1) Nucleated Red Blood Cells 0.0 % (0.0-0.19) White Cell Morphology Comment See comments Sodium Level 136 mmol/L (136-145) Potassium Level 5.2 mmol/L (3.5-5.1) H Chloride Level 103 mmol/L (101-111) Carbon Dioxide Level 23 mmol/L (21-32) Blood Urea Nitrogen 42 mg/dL (7-18) H Creatinine 1.5 mg/dL (0.5-1.0) H Glomerular Filtration Rate Calc 37 mL/min (>90) Random Glucose 147 mg/dL (70-105) H Total Calcium 10.7 mg/dL (8.5-10.1) H Magnesium Level 1.80 mg/dL (1.80-2.40) Total Creatine Kinase 67 U/L (21-232) # Troponin I High Sensitivity 7.2 ng/L (4-50) Thyroid Stimulating Hormone (TSH) 4.59 uIU/mL (0.36-3.74) #H Urine Color COLORLESS (YELLOW) Urine Appearance CLEAR (CLEAR) Urine pH 5.5 (5.0-8.0) Urine Specific Johnson 1.009 (1.001-1.031) Urine Protein 10 mg/dL (NEGATIVE) H Urine Glucose (UA) >=1000 mg/dL (NEGATIVE) H Urine Ketones NEGATIVE mg/dL (NEGATIVE) Urine Occult Blood NEGATIVE (NEGATIVE) Urine Nitrate NEGATIVE (NEGATIVE) Urine Bilirubin NEGATIVE mg/dL (NEGATIVE) Urine Urobilinogen 0.2 mg/dL (0.2-1.0) Urine Leukocyte Esterase NEGATIVE Lilliana/uL Urine RBC 0-1 /HPF (0-1) Urine WBC 2-5 /HPF (0-1) H Urine Squamous Epithelial Cells RARE /HPF (0-2) Urine Bacteria RARE /HPF (None Seen) Labs Reviewed?: Yes EKG Comment: 12 lead EKG done on 01/11/2025 at 8:26 p.m. showed a heart rate of 69, [place] interval 176, QRS 109, QT/QTC 403/431. Impression-normal sinus rhythm with overall low voltage and some old changes of ischemic heart disease noted no acute obvious ST elevations in multiple leads with reciprocal changes. She does have some nonspecific ST-T changes. Patient has no symptoms from cardiac standpoint. EKG rhythm strip showed a normal sinus rhythm with nonspecific ST-T changes EKG interpreted by ER MD Dr. Dominguez ED Course ED Course Orders Procedure Category Date Status Time Cardiac Panel LAB 01/11/25 Complete 20:11 Cbc With Differential LAB 01/11/25 Complete 20:11 Basic Metabolic Panel LAB 01/11/25 Complete 20:11 Magnesium LAB 01/11/25 Complete 20:11 Urinalysis Profile LAB 01/11/25 Complete 20:11 12 Lead Ekg Tracing- EKG 01/11/25 Complete Technical 20:11 0.9%Nacl 1000ml (Ns PHA 01/11/25 Complete 1000ml) 21:30 Thyroid Stimulating LAB 01/11/25 Complete Hormone 21:25 Current Medications Medications (Trade) Dose Ordered Sig/Christie Route PRN Reason Start Time Stop Time Status Last Admin Dose Admin Sodium Chloride 1,000 ml @ 0 mls/hr ONCE ONCE IV 01/11/25 21:30 01/11/25 21:31 DC 01/11/25 22:05 Vital Signs Date Time Temp Pulse Resp B/P (MAP) Pulse Ox O2 Delivery O2 Flow Rate FiO2 01/11/25 20:15 98.4 72 20 119/44 100 Room Air* 0 21 01/11/25 20:11 98.8 81 16 105/60 97 Room Air 0 We will perform diagnostic labs, and administer medications according to the patient's complaint. Once the results are available, will review and personally interpreted the labs to rule out any acute life-threatening emergency the trach require immediate intervention and treatment. I will then re-evaluate the patient after treatment and diagnostic exams have return to determine whether the patient requires any further testing, can safely be discharged home or need further admission to hospital for additional treatment and evaluation. Reviewed labs CBC shows a hemoglobin of 11.2 calcium 10.7 magnesium 1.8 BNP 7 shows a potassium of 5.2 BUN and creatinine are 42 and 1.5 and glucose was normal. Troponins are negative. Urinalysis was unremarkable TSH requested pending 10:35 p.m. TSH in September 2023 was 2.14 repeat TSH this visit was 4.59. Due to marginal blood pressure and signs of dehydration gentle bolus of fluids was given I had a long discussion with the patient's son and patient and answered all their questions. I recommended that she should follow up with the primary care physician and discussed the increased TSH levels and further workup for possible hypothyroidism Medical Decision Making MDM Differential diagnosis: Electrolyte abnormalities, dehydration, hypothyroidism, worsening anemia, medication induced Rationale: Tests considered and ordered secondary to shared decision making include: Previous outside records reviewed: Old ER visits. Risk of complication and/or morbidity or mortality of patient management: None Medications-Per medication reconciliation Need for hospitalization: Patient does not meet criteria for hospitalization. Need for emergency major/minor surgery: No There are no social concerns with this patient. Prescription drug management Prescriptions will include symptomatic care Patient's prior external medical records from other ER visits were reviewed by me as indicated. Prior testing and results from previous visits were reviewed. Prior tests were taken into account with medical decision making and resource utilization, independent historian/historians were used to obtain complete medical history. I independently interpreted the test that were performed, results were reviewed by me and considered findings on radiology if ordered. Medical management and examination interpretation discussions were had by me with other qualified healthcare professionals as indicated for the patient's care. Problem List Problem List: (1) Truncal obesity (2) Dehydration (3) Debilitated patient (4) Uncontrolled diabetes mellitus (5) Ikapl-ye-yfaeyic kidney injury (6) Elevated TSH DX & DISP Disposition: Discharge Departure Impression: Primary Impression: Dehydration Additional Impressions: Generalized weakness, Uncontrolled diabetes mellitus, Debilitated patient, Elevated TSH, Truncal obesity Condition: Stable Additional Instructions: Patient and the caregiver have been informed of all the diagnostic tests and the imaging conducted during the today's visit to the emergency room and has verbal ized understanding of the results I have personally reviewed and interpreted all diagnostic exams performed here in the ER today as well as the vital signs documented by the nursing staff. The patient is now being discharged to home and should follow up with the primary care physician or the specialist as directed by the ER staff. Follow-up with primary care provider in 1 to 2 days. Take medications as directed here in the emergency room. Okay to continue home medications unless otherwise discussed during your visit in the emergency room today. Return to your nearest emergency room if symptoms worsen or if there is no improvement. Call 911 if you need immediate assistance. Take Tylenol or Motrin [id number] as needed and if no contraindications are present. Increase oral hydration. A wound culture or urine culture was ordered here in the emergency room department please follow-up with primary care provider and advise them to get repeat ports from our facility. If you had any Zohaib wrap/splints th at were applied here, please do not remove them until you see your primary care or specialty. Referrals: SELF,REFERRAL (PCP) LEONIDAS DOMINGUEZ MD Jan 11, 2025 20:55
[2025-01-11 20:57] LABS: CREATINE KINASE, TOTAL 67.0 U/L (21-232)
[2025-01-11 21:07] LABS: APPEARANCE,URINE CLEAR (CLEAR); GLUCOSE, URINE (UA) >=1000 mg/dL (NEGATIVE); LEUKOCYTE ESTERASE ,URINE NEGATIVE Leu/uL (NEGATIVE); NITRATE,URINE NEGATIVE (NEGATIVE); OCCULT BLOOD,URINE NEGATIVE (NEGATIVE)
[2025-01-11 21:08] LABS: ADD UA MICROSCOPIC YES
[2025-01-11 21:09] LABS: SQUAMOUS EPITHELIAL CELL,UR RARE /HPF (0-2)
[2025-01-11] MEDS: 0.9%NACL 1000ML 1,000 ML IV ONE (22:05)
[2025-01-11 22:52] VITALS: BP 152/53; PULSE 70; RESP 20; TEMP 98.4; O2SAT 99
== END 2025-01-11 23:41 | disposition home or self-care (01) ==
LOC: EDH 20:05
DX: E86.0 Dehydration (principal); R53.1 Weakness; E11.65 Type 2 diabetes mellitus with hyperglycemia; R94.6 Abnormal results of thyroid function studies; E66.9 Obesity, unspecified; E78.00 Pure hypercholesterolemia, unspecified; F32.A Depression, unspecified; F41.9 Anxiety disorder, unspecified; I10 Essential (primary) hypertension; Z79.84 Long term (current) use of oral hypoglycemic drugs; Z68.34 Body mass index [BMI] 34.0-34.9, adult; Z79.899 Other long term (current) drug therapy; Z95.5 Presence of coronary angioplasty implant and graft
CPT/HCPCS: 99284; 84443; 82550; 83735; 84484; 80048; 85025; 81001; 36415; 93005; J7030

== ENCOUNTER 2025-05-04 11:10 | Emergency (ER) | payer OTHER, MEDICAID ==
[~2025-05-04] VITALS: Ht 152.4 cm; Wt 104.3 kg
--- NOTE | 2025-05-04 11:25 | ERN ---
ED Note History of Present Illness Stated Complaint: SOB Chief Complaint: Shortness of Breath Time Seen by MD: 11:13 Dictation: 74-YEAR-OLD FEMALE HERE WITH HER SON WHO HAS GOT A COMPLAINT OF SHORTNESS A BREATH WITH THE EXERTION OVER THE LAST 2-3 WEEKS NO FEVER NO CHILLS NO NAUSEA VOMITING. SHE STATES SHE DOES TAKE A WATER PILL DUE TO EDEMA. SHE DENIES CHEST PAIN BACK PAIN NO LOSS OF TASTE OR SMELL NO FEVER. Allergies: Coded Allergies: No Known Allergies (Verified Allergy, Unknown, 11/19/18) Home Meds Active Scripts Naproxen (Naproxen) 250 Mg Tablet, 1 TAB PO BID for pain for 15 Days, #30 TAB 0 Refills Prov:DESTINY ZURITA MD 05/10/24 Reported Medications Clonazepam (Clonazepam) 0.5 Mg Tablet, 1 TAB PO [id number] PRN for anxiety for 30 Days, #60 TAB 0 Refills 12/06/24 Hydralazine HCl (Hydralazine HCl) 25 Mg Tablet, 25 MG PO TID, TAB 11/21/23 Ferrous Sulfate (Ferrous Sulfate) 325 Mg (65 Mg Iron) Ectab, 325 MG PO AM, TAB.EC 11/21/23 Pioglitazone HCl (Pioglitazone HCl) 15 Mg Tablet, 15 MG PO AM, TAB 11/21/23 Finerenone (Kerendia) 10 Mg Tablet, 10 MG PO DAILY, TAB 11/21/23 Mirabegron (Myrbetriq) 50 Mg Tab.er.24h, 50 MG PO DAILY, TAB 09/14/23 Fenofibrate Nanocrystallized (Fenofibrate) 145 Mg Tablet, 145 MG PO DAILY, TAB 09/14/23 Trazodone HCl (Trazodone HCl) 50 Mg Tablet, 50 MG PO HS PRN for SLEEP, TAB 09/14/23 Torsemide (Torsemide) 10 Mg Tablet, 10 MG PO DAILY, TAB 09/14/23 Escitalopram Oxalate (Escitalopram Oxalate) 20 Mg Tablet, 20 MG PO DAILY, TAB 09/14/23 Amlodipine Besylate (Amlodipine Besylate) 2.5 Mg Tablet, 2.5 MG PO DAILY, TAB 09/14/23 Finerenone (Kerendia) 10 Mg Tablet, 10 MG PO DAILY, TAB 09/14/23 Pioglitazone HCl (Pioglitazone HCl) 15 Mg Tablet, 15 MG PO DAILY, TAB 09/14/23 Rosuvastatin Calcium (Rosuvastatin Calcium) 40 Mg Tablet, 40 MG PO DAILY, TAB 09/14/23 Furosemide (Furosemide) 40 Mg Tablet, 40 MG PO DAILY, TAB 09/14/23 Empagliflozin (Jardiance) 25 Mg Tablet, 25 MG PO DAILY, TAB 09/14/23 Lisinopril (Lisinopril) 40 Mg Tablet, 40 MG PO DAILY, TAB 09/14/23 Past Medical History Past Medical History: Anxiety, Depression, Diabetes-Type II, High Cholesterol, Heart Disease, Hypertension, Vascular Disease Additional Past Medical Hx: OBESITY Surgical History: Other Surgical History Other: CARDIAC STENT. L KNEE SURGERY Family History: Negative Social History: Negative, Lives with family History: Not Applicable RN Note Reviewed/Agreed w/PFSH: Yes Review of System Dictation CONSTITUTIONAL: NEGATIVE EXCEPT FOR HPI CHILLS HEAD/FACE: NEGATIVE EXCEPT FOR HPI EENT: NEGATIVE EXCEPT FOR HPI RESPIRATORY: NEGATIVE EXCEPT FOR HPI SHORTNESS A BREATH LAST 2-3 WEEKS GASTROINTESTINAL/ABDOMINAL: NEGATIVE EXCEPT FOR HPI GENITOURINARY: NEGATIVE EXCEPT FOR HPI MUSCULOSKELETAL: NEGATIVE EXCEPT FOR HPI INTEGUMENTARY: NEGATIVE EXCEPT FOR HPI NEUROLOGICAL/PSYCH: NEGATIVE EXCEPT FOR HPI HEMATOLOGIC/LYMPHATIC: NEGATIVE EXCEPT FOR HPI ALL SYSTEMS NEGATIVE, EXCEPT NOTED ABOVE. 13 POINT REVIEW OF SYSTEMS ASSESSED AND ALL NEGATIVE EXCEPT FOR ABOVE. Review of Systems: was completed Initial Vital Sign VS Vital Signs Date Time Temp Pulse Resp B/P (MAP) Pulse Ox O2 Delivery O2 Flow Rate FiO2 05/04/25 11:12 97.7 100 16 145/72 99 Room Air 0 05/04/25 14:06 21 Physical Exam Dictation VITAL SIGNS REVIEWED GENERAL APPEARANCE: ALERT, ORIENTED X 3, NO ACUTE DISTRESS, WELL DEVELOPED, NOURISHED. HEAD AND FACE: NON-TRAUMATIC. EYES: PERRL, PINK CONJUNCTIVAS, EYELID NO TRAUMA, ANTERIOR CHAMBER WITH ARCUS SENILIS. EARS: PINNAS INTACT AND NO SIGNS OF TRAUMA OR ERYTHEMA EAR CANALS CLEAR AND NO DISCHARGE TM NO ERYTHEMA NOSE: NO DISCHARGE, NO BLEEDING. OROPHARYNX: MOUTH NORMAL, TONGUE PINK, PHARYNX CLEAR,NO ERYTHEMA, TONSILS NO EXUDATES, NO ABSCESSES NOTED, MUCOUS MEMBRANE MOIST NECK: SUPPLE, NON-TENDER, NO THYROMEGALY, NO MASSES, NO JVD, NO BRUITS BREAST:DEFERRED CHEST:NO TENDERNESS, NO CREPITUS, NO PARADOXICAL MOVEMENT, NO RETRACTIONS LUNGS:CLEAR, WELL-VENTILATED, SYMMETRIC, NO RALES, NO WHEEZING, NO RHONCHI, NO STRIDOR, GOOD BREATH SOUNDS BILATERALLY YOUR RETRACTIONS HEART: REGULAR RATE, REGULAR RHYTHM, NO MURMUR, NO GALLOPS VASCULAR: NO PERIPHERAL EDEMA, ABDOMEN: SOFT, POSITIVE BOWEL SOUNDS, NONDISTENDED, NO GUARDING, NONTENDER, NO REBOUND, NO MASSES NO HEPATOMEGALY, NO SPLENOMEGALY, NO GONZALES'S SIGN, NO HERNIAS. RECTAL: DEFERRED GENITAL: DEFERRED NEUROLOGICAL: NORMAL SPEECH, MOTOR FUNCTION INTACT, SENSORY FUNCTION INTACT MUSCULOSKELETAL: NECK NONTENDER, FULL RANGE OF MOTION, BACK NONTENDER, FULL RANGE OF MOTION, EXTREMITIES: NONTENDER, FULL RANGE OF MOTION SKIN: COLOR PINK, DRY, NO TURGOR, NO RASH, NO LACERATIONS, NO ABRASIONS, NO CONTUSIONS. LYMPHATIC: DEFERRED Results (Laboratory/Radiology) Laboratory/Radiology Laboratory Tests Test 05/04/25 12:00 05/04/25 15:12 05/04/25 15:20 White Blood Count 6.7 K/uL (4.8-10.8) Red Blood Count 5.02 MIL/uL (4.00-5.50) Hemoglobin 13.7 g/dL (12.0-16.0) Hematocrit 44.0 % (36-48) Mean Corpuscular Volume 87.6 fL (79-99) Mean Corpuscular Hemoglobin 27.3 pg (27.0-33.0) Mean Corpuscular Hemoglobin Concent 31.1 g/dL (32.0-36.0) L Red Cell Distribution Width 15.3 % (11.0-15.5) Platelet Count 250 K/uL (130-400) Mean Platelet Volume 11.3 fL (7.5-10.5) H Immature Granulocyte % (Auto) 0.3 % (0-1) Neutrophils (%) (Auto) 81.5 % (40.0-77.0) H Lymphocytes (%) (Auto) 9.6 % (21.0-51.0) L Monocytes (%) (Auto) 7.0 % (3.0-13.0) Eosinophils (%) (Auto) 1.2 % (0.0-8.0) Basophils (%) (Auto) 0.4 % (0.0-5.0) Neutrophils # (Auto) 5.5 K/uL (1.8-7.7) Lymphocytes # (Auto) 0.7 K/uL (1.0-4.8) L Monocytes # (Auto) 0.5 K/uL (0.1-1.0) Eosinophils # (Auto) 0.08 K/uL (0.00-0.70) Basophils # (Auto) 0.03 K/uL (0.00-0.20) Absolute Immature Granulocyte (auto 0.02 K/uL (0-1) Nucleated Red Blood Cells 0.0 % (0.0-0.19) White Cell Morphology Comment See comments Sodium Level 133 mmol/L (136-145) L Potassium Level 4.7 mmol/L (3.5-5.1) Chloride Level 97 mmol/L (101-111) L Carbon Dioxide Level 30 mmol/L (21-32) Blood Urea Nitrogen 30 mg/dL (7-18) H Creatinine 1.4 mg/dL (0.5-1.0) H Glomerular Filtration Rate Calc 40 mL/min (>90) Random Glucose 159 mg/dL (70-105) H Total Calcium 10.7 mg/dL (8.5-10.1) H Magnesium Level 2.30 mg/dL (1.80-2.40) Troponin I High Sensitivity 6 ng/L (4-50) B-Type Natriuretic Peptide < 5 pg/mL (0-100) Urine Color COLORLESS (YELLOW) Urine Appearance CLEAR (CLEAR) Urine pH 6.0 (5.0-8.0) Urine Specific [place] 1.008 (1.001-1.031) Urine Protein 10 mg/dL (NEGATIVE) H Urine Glucose (UA) >=1000 mg/dL (NEGATIVE) H Urine Ketones NEGATIVE mg/dL (NEGATIVE) Urine Occult Blood +- (TRACE) (NEGATIVE) H Urine Nitrate NEGATIVE (NEGATIVE) Urine Bilirubin NEGATIVE mg/dL (NEGATIVE) Urine Urobilinogen 0.2 mg/dL (0.2-1.0) Urine Leukocyte Esterase NEGATIVE Lilliana/uL Urine RBC 0-1 /HPF (0-1) Urine WBC 2-5 /HPF (0-1) H Urine Squamous Epithelial Cells RARE /HPF (0-2) Urine Bacteria RARE /HPF (None Seen) SARS-CoV-2 Antigen (Rapid) PRESUMPTIVE NEGATIVE Labs Reviewed?: Yes EKG Comment: Test Date: 2025-05-04 Test Time: 11:33:24 Pat Name: KAYE CABAN Department: [facility] Room: Gender: F 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 ED Course ED Course Orders Procedure Category Date Status Time Covid19 (Sars Antigen LAB 05/04/25 Complete Rapid) 11:23 B-Type Natriuretic LAB 05/04/25 Complete Peptide 11:23 Cbc With Differential LAB 05/04/25 Complete 11:23 Chest 1vw RAD 05/04/25 Resulted 11:23 12 Lead Ekg Tracing- EKG 05/04/25 Complete Technical 11:23 Magnesium LAB 05/04/25 Complete 11:23 Troponin I High LAB 05/04/25 Complete Sensitivity 11:23 Basic Metabolic Panel LAB 05/04/25 Complete 11:23 Urinalysis Profile LAB 05/04/25 Complete 11:23 Vital Signs Date Time Temp Pulse Resp B/P (MAP) Pulse Ox O2 Delivery O2 Flow Rate FiO2 05/04/25 14:06 97.5 98 17 134/76 99 Room Air* 0 21 05/04/25 11:12 97.7 100 16 145/72 99 Room Air 0 1725/PATIENT IS SATTING 98-100% ON ROOM AIR. HEMODYNAMICALLY STABLE NO COMPLAI NTS OF VOICE AT THIS TIME. RESULTS OF LABS CHEST X-RAY SARS COVID ETC. ALL DISCUSSED WITH PATIENT AND HER SHE WILL BE DISCHARGED HOME WITH ALBUTEROL TO SEE HER DOCTOR TOMORROW. HEART Score Response (Comments) Value EKG: Repolarization changes 1 Age: > 65yrs (+2) 2 Risk Factors: 1-2 risk factors (+1) 1 Initial Troponin: Normal limit (0) 0 Total 4 Medical Decision Making MDM MDM: DIFFERENTIAL DIAGNOSIS: ACS/AMI/CHF EXACERBATION/PNEUMONIA/BRONCHITIS/SARS COVID/ELECTROLYTE IMBALANCE/DEHYDRATION/ANXIETY RATIONALE: TESTS CONSIDERED AND ORDERED SECONDARY TO SHARED DECISION MAKING INCLUDE: LABS/RADIOLOGY/EKG PREVIOUS OUTSIDE RECORDS REVIEWED: OLD ER VISITS. RISK OF COMPLICATION AND/OR MORBIDITY OR MORTALITY OF PATIENT MANAGEMENT: NONE MEDICATIONS-PER MEDICATION RECONCILIATION NEED FOR HOSPITALIZATION: PATIENT DOES NOT MEET CRITERIA FOR HOSPITALIZATION. NONE NEED FOR EMERGENCY MAJOR/MINOR SURGERY: NO THERE ARE NO SOCIAL CONCERNS WITH THIS PATIENT. PRESCRIPTION DRUG MANAGEMENT ALBUTEROL PRESCRIPTIONS WILL INCLUDE SYMPTOMATIC CARE PATIENT'S PRIOR EXTERNAL MEDICAL RECORDS FROM OTHER ER VISITS WERE REVIEWED BY ME INDICATED. PRIOR TESTING AND RESULTS FROM PREVIOUS VISITS WERE REVIEWED. PRIOR TESTS WERE TAKEN INTO ACCOUNT WITH MEDICAL DECISION MAKING AND RESOURCE UTILIZATION, INDEPENDENT HISTORIAN/HISTORIANS WERE USED TO OBTAIN COMPLETE MEDICAL HISTORY. I INDEPENDENTLY INTERPRETED THE TEST THAT WERE PERFORMED, RESULTS WERE REVIEWED BY ME AND CONSIDERED FINDINGS ON RADIOLOGY IF ORDERED. MEDICAL MANAGEMENT AND EXAMINATION INTERPRETATION DISCUSSIONS WERE HAD BY ME WITH OTHER QUALIFIED HEALTHCARE PROFESSIONALS INDICATED FOR THE PATIENT'S CARE. DX & DISP Disposition: Discharge Departure Impression: Primary Impression: Dyspnea Additional Impressions: Stage 3 chronic kidney disease, Hyponatremia, Hypochloremia Condition: Stable Scripts Albuterol Sulfate (Ventolin Hfa/Proventil Hfa/Proair Hfa) 90 Mcg Puff 2 PUFF IH Q4H for WHEEZING, #1 INHALER 0 Refills Prov: KANG FRANCO RESPONDER 05/04/25 Additional Instructions: FOLLOW-UP WITH PRIMARY CARE PROVIDER IN 1 TO 2 DAYS. TAKE MEDICATIONS DIRECTED HERE IN THE EMERGENCY ROOM. OKAY TO CONTINUE HOME MEDICATIONS UNLESS OTHERWISE DISCUSSED DURING YOUR VISIT IN THE EMERGENCY ROOM TODAY. RETURN TO YOUR NEAREST EMERGENCY ROOM IF SYMPTOMS WORSEN OR IF THERE IS NO IMPROVEMENT. CALL 911 IF YOU NEED IMMEDIATE ASSISTANCE. TAKE TYLENOL OR MOTRIN OVER-THE- COUNTER NEEDED AND IF NO CONTRAINDICATIONS ARE PRESENT. INCREASE ORAL HYDRATION. A WOUND CULTURE OR URINE CULTURE WAS ORDERED HERE IN THE EMERGENCY ROOM DEPARTMENT PLEASE FOLLOW-UP WITH PRIMARY CARE PROVIDER AND ADVISE THEM TO GET REPEAT PORTS FROM OUR FACILITY. IF YOU HAD ANY MERCEDEZ WRAP/SPLINTS THAT WERE APPLIED HERE, PLEASE DO NOT REMOVE THEM UNTIL YOU SEE YOUR PRIMARY CARE OR SPECIALTY. USE ALBUTEROL EVERY 4 HOURS WHILE AWAKE NEEDED FOR SHORTNESS A BREATH. SEE YOUR PRIMARY CARE DOCTOR IN 1-2 DAYS FOR FOLLOW UP AND MANAGEMENT. Referrals: DEANNA SANTACRUZ (PCP) Time of Disposition: 17:23 I have reviewed the case, and I agree with, Diagnosis and Plan KANG FRANCO [facility] May 04, 2025 11:25
[2025-05-04 12:11] LABS: IMMATURE GRANULOCYTE ABSOLUTE 0.02 K/uL (0-1); NUCLEATED RED BLOOD CELLS 0.0 % (0.0-0.19); PLATELET COUNT (AUTO) 250 K/uL (130-400); RED BLOOD CELL COUNT(AUTO) 5.02 MIL/uL (4.00-5.50); RED CELL DISTRIBUTION WIDTH 15.3 % (11.0-15.5); WHITE BLOOD COUNT (AUTO) 6.7 K/uL (4.8-10.8)
[2025-05-04 12:19] LABS: CREATININE 1.4 mg/dL (0.5-1.0); GLOMERULAR FILTR. RATE CALC 40.0 mL/min (>90); GLUCOSE,RANDOM 159.0 mg/dL (70-105); SODIUM SERUM 133.0 mmol/L (136-145); UREA NITROGEN, BLOOD 30.0 mg/dL (7-18)
--- NOTE | 2025-05-04 12:37 | EKG ---
[facility] Test Date: 2025-05-04 Test Time: 11:33:24 Pat Name: KAYE CABAN Department: [facility] Room: Gender: F Filling Winder: 0723 : 1950 Requested By: KANG FRANCO Order Number: [id number] Reading MD: Santos Mccallum Measurements Intervals [place] Rate: 86 P: 49 DC: 169 QRS: -46 QRSD: 109 T: 51 QT: 396 QTc: 473 Interpretive Statements Sinus rhythm LAD, consider left anterior fascicular block Left ventricular hypertrophy Anterior infarct, old Compared to ECG 01/11/2025 20:26:22 Left ventricular hypertrophy now present Myocardial infarct finding still present Electronically Signed On 05-06-2025 11:49:29 CUTTING PRESSMAN by Santos Mccallum Please click the below link to view image of tracing.
--- NOTE | 2025-05-04 13:11 | HMCIMG ---
EXAM: CR Chest, 1 View. CLINICAL HISTORY: SOB COMPARISON: None provided. FINDINGS: LUNGS: There is no mass, infiltrate, or acute pulmonary abnormality. PLEURAL SPACES: No pleural effusion or pneumothorax. MEDIASTINUM: Cardiac size and mediastinal contours within normal limits. BONES: No acute osseous abnormality. IMPRESSION: No acute cardiopulmonary pathology is evident. /[place]
--- NOTE | 2025-05-04 14:06 | NUR ---
REPORT RECIEVED FROM KIM CONCEPCION. PATIENT CARE ASSUMED AT THIS TIME.
[2025-05-04 15:32] LABS: APPEARANCE,URINE CLEAR (CLEAR); GLUCOSE, URINE (UA) >=1000 mg/dL (NEGATIVE); LEUKOCYTE ESTERASE ,URINE NEGATIVE Leu/uL (NEGATIVE); NITRATE,URINE NEGATIVE (NEGATIVE); OCCULT BLOOD,URINE +- (TRACE) (NEGATIVE)
[2025-05-04 15:38] LABS: ADD UA MICROSCOPIC YES
[2025-05-04 15:39] LABS: SQUAMOUS EPITHELIAL CELL,UR RARE /HPF (0-2)
[2025-05-04] MEDS ORDERED: ALBUHFA IH (17:24)
[2025-05-04 17:27] VITALS: BP 124/72; PULSE 98; RESP 19; TEMP 97.5; O2SAT 100
== END 2025-05-04 17:33 | disposition home or self-care (01) ==
LOC: EDH 11:10
DX: R06.00 Dyspnea, unspecified (principal); I12.9 Hypertensive chronic kidney disease with stage 1 through stage 4 chronic kidney disease, or unspecified chronic kidney disease; N18.30 Chronic kidney disease, stage 3 unspecified; E87.1 Hypo-osmolality and hyponatremia; E11.22 Type 2 diabetes mellitus with diabetic chronic kidney disease; E87.8 Other disorders of electrolyte and fluid balance, not elsewhere classified; F41.9 Anxiety disorder, unspecified; F32.A Depression, unspecified; E78.00 Pure hypercholesterolemia, unspecified; Z95.5 Presence of coronary angioplasty implant and graft; Z79.899 Other long term (current) drug therapy; Z79.84 Long term (current) use of oral hypoglycemic drugs; Z20.822 Contact with and (suspected) exposure to COVID-19
CPT/HCPCS: 36415; 71045; 80048; 81001; 83735; 83880; 84484; 85025; 87426; 93005; 99285